=== PATIENT | male | born 1950 | race Caucasian/White ===

== ENCOUNTER 2017-09-17 11:26 | Emergency (ER) | payer BC ==
[~2017-09-17] VITALS: Ht 175.3 cm; Wt 117.0 kg
[~2017-09-17 11:26] MED LIST: COUMADIN7.5 MG PO; LEVOFLOXACIN750 MG PO; LOVENOX150 MG/1 M SC; METFORMIN HCL1000 MG PO; NICOTINE PATCH1 EAC2 TD
[2017-09-17 12:19] LABS: BASOPHIL (%) 0.2 % (0-1); EOSINOPHIL (%) 0.2 % (0-5); HEMATOCRIT 42.8 % (38.0-50.0); HEMOGLOBIN 14.4 G/DL (12.5-16.6); IMMATURE GRANULOCYTE (%) 1.3 % (0.0-0.7); LYMPHOCYTE (%) 9.4 % (15-42); LYMPHOCYTE COUNT 1.4 K/uL (1.0-2.8); MCH 29.3 PG (29.0-34.0); MCHC 33.6 G/DL (30.0-36.0); MCV 87.2 FL (86-99); MONOCYTE (%) 7.7 % (3-12); MONOCYTE COUNT 1.1 K/uL (0-0.8); NEUTROPHIL (%) 81.2 % (45-76); NEUTROPHIL COUNT 11.8 K/uL (1.8-6.4); PLATELET COUNT 214 K/uL (156-360); RBC DIS.WIDTH-CV 15.7 % (11.8-14.6); RBC DIS.WIDTH-SD 50.5 % (39-53); RED BLOOD COUNT 4.91 M/uL (4.00-5.50); WHITE BLOOD COUNT 14.5 K/uL (4.1-10.2)
[2017-09-17 12:29] LABS: INTER. NORMALIZED RATIO 1.9
[2017-09-17 12:31] LABS: CHLORIDE 100 mEq/L (99-109); POTASSIUM 4.2 mEq/L (3.7-5.4); SODIUM 136 mEq/L (136-147)
[2017-09-17 12:33] LABS: GLUCOSE 143 mg/dL (70-99)
[2017-09-17 12:37] LABS: CREATININE 0.9 mg/dL (0.6-1.3); GFR ESTIMATE (CALCULATED) > 59 mL/min/ (58.99-99999); UREA NITROGEN (BUN) 13 mg/dL (9-23)
[2017-09-17] MEDS ORDERED: AUGMENTIN875 MG PO (13:40)
[2017-09-17 14:17] VITALS: BP 102/68
== END 2017-09-17 14:18 | disposition home or self-care (01) ==
LOC: EME 11:26
PROVIDERS: Emergency Medicine
DX: L03.115 Cellulitis of right lower limb (principal); E11.9 Type 2 diabetes mellitus without complications; Z86.718 Personal history of other venous thrombosis and embolism; Z79.01 Long term (current) use of anticoagulants; F17.200 Nicotine dependence, unspecified, uncomplicated; Z88.1 Allergy status to other antibiotic agents
CPT/HCPCS: 80048; 85025; 85610; 93971; 99281; 99284

== ENCOUNTER 2017-09-25 21:41 | Inpatient (IN) | payer BC ==
[~2017-09-25] VITALS: Ht 175.3 cm; Wt 115.9 kg
[~2017-09-25 21:41] MED LIST changes: +AUGMENTIN875 MG PO
[2017-09-25 23:09] LABS: HEMATOCRIT 40.2 % (38.0-50.0); HEMOGLOBIN 13.2 G/DL (12.5-16.6); MCH 28.8 PG (29.0-34.0); MCHC 32.8 G/DL (30.0-36.0); MCV 87.8 FL (86-99); PLATELET COUNT 252 K/uL (156-360); RBC DIS.WIDTH-CV 15.2 % (11.8-14.6); RBC DIS.WIDTH-SD 49.1 % (39-53); RED BLOOD COUNT 4.58 M/uL (4.00-5.50); WHITE BLOOD COUNT 8.3 K/uL (4.1-10.2)
[2017-09-25 23:20] LABS: ALBUMIN 2.8 g/dL (3.2-4.8); PTT 46.2 SEC (25-37)
[2017-09-25 23:21] LABS: CHLORIDE 101 mEq/L (99-109); POTASSIUM 3.5 mEq/L (3.7-5.4); SODIUM 141 mEq/L (136-147)
[2017-09-25 23:23] LABS: GLUCOSE 123 mg/dL (70-99)
[2017-09-25 23:25] LABS: TOTAL BILIRUBIN 0.5 mg/dL (0.0-1.0)
[2017-09-25 23:26] LABS: ALKALINE PHOSPHATASE 83 IU/L (3-129)
[2017-09-25 23:27] LABS: CREATININE 0.8 mg/dL (0.6-1.3); GFR ESTIMATE (CALCULATED) > 59 mL/min/ (58.99-99999); INTER. NORMALIZED RATIO 5.7
[2017-09-25 23:28] LABS: AST (GOT) 39 IU/L (2-34); UREA NITROGEN (BUN) 12 mg/dL (9-23)
[2017-09-25 23:29] LABS: ALT (GPT) 44 IU/L (3-49)
[2017-09-25 23:30] LABS: LIPASE 15 U/L (1.0-51.0)
[2017-09-26] MEDS ORDERED: WARFARIN SODIUM10 MG PO (00:09)
[2017-09-26] MEDS ORDERED: ATORVASTATIN CA40 MG PO (00:10)
[2017-09-26 07:38] LABS: INTER. NORMALIZED RATIO 6.3
[2017-09-26 17:13] VITALS: BP 121/60
[2017-09-26 19:39] VITALS: BP 118/68
[2017-09-26 23:56] VITALS: BP 120/76
[2017-09-27 03:46] VITALS: BP 120/69
[2017-09-27 05:53] LABS: BASOPHIL (%) 0.2 % (0-1); EOSINOPHIL (%) 3.7 % (0-5); EOSINOPHIL COUNT 0.3 K/uL (0-0.3); HEMATOCRIT 36.1 % (38.0-50.0); HEMOGLOBIN 11.5 G/DL (12.5-16.6); IMMATURE GRANULOCYTE (%) 1.1 % (0.0-0.7); LYMPHOCYTE (%) 22.3 % (15-42); LYMPHOCYTE COUNT 1.8 K/uL (1.0-2.8); MCH 28.1 PG (29.0-34.0); MCHC 31.9 G/DL (30.0-36.0); MCV 88.3 FL (86-99); MONOCYTE (%) 5.2 % (3-12); MONOCYTE COUNT 0.4 K/uL (0-0.8); NEUTROPHIL (%) 67.5 % (45-76); NEUTROPHIL COUNT 5.4 K/uL (1.8-6.4); PLATELET COUNT 250 K/uL (156-360); RBC DIS.WIDTH-CV 15.5 % (11.8-14.6); RBC DIS.WIDTH-SD 50.4 % (39-53); RED BLOOD COUNT 4.09 M/uL (4.00-5.50); WHITE BLOOD COUNT 8.1 K/uL (4.1-10.2)
[2017-09-27 06:19] LABS: INTER. NORMALIZED RATIO 3.7
[2017-09-27 06:23] LABS: CHLORIDE 105 MEQ/L (99-109); CREATININE 0.6 MG/DL (0.6-1.3); GFR ESTIMATE (CALCULATED) > 59 mL/min/ (58.99-99999); GLUCOSE 107 mg/dL (70-99); POTASSIUM 3.8 MEQ/L (3.7-5.4); SODIUM 139 MEQ/L (136-147); UREA NITROGEN (BUN) 9 mg/dL (9-23)
[2017-09-27 08:36] VITALS: BP 128/73
[2017-09-27 11:32] VITALS: BP 116/64
[2017-09-27 16:29] VITALS: BP 135/80
[2017-09-27 20:02] VITALS: BP 109/57
[2017-09-27 23:54] VITALS: BP 122/80
[2017-09-28 04:17] VITALS: BP 174/68
[2017-09-28 06:04] LABS: BASOPHIL (%) 0.3 % (0-1); EOSINOPHIL (%) 2.6 % (0-5); EOSINOPHIL COUNT 0.2 K/uL (0-0.3); HEMOGLOBIN 11.7 G/DL (12.5-16.6); IMMATURE GRANULOCYTE (%) 1.4 % (0.0-0.7); LYMPHOCYTE (%) 24.2 % (15-42); LYMPHOCYTE COUNT 1.9 K/uL (1.0-2.8); MCH 28.8 PG (29.0-34.0); MCHC 32.5 G/DL (30.0-36.0); MCV 88.7 FL (86-99); MONOCYTE (%) 5.1 % (3-12); MONOCYTE COUNT 0.4 K/uL (0-0.8); NEUTROPHIL (%) 66.4 % (45-76); NEUTROPHIL COUNT 5.1 K/uL (1.8-6.4); PLATELET COUNT 252 K/uL (156-360); RBC DIS.WIDTH-CV 15.9 % (11.8-14.6); RBC DIS.WIDTH-SD 51.4 % (39-53); RED BLOOD COUNT 4.06 M/uL (4.00-5.50); WHITE BLOOD COUNT 7.6 K/uL (4.1-10.2)
[2017-09-28 06:30] LABS: ALBUMIN 2.7 G/DL (3.2-4.8); ALKALINE PHOSPHATASE 62 IU/L (3-129); ALT (GPT) 40 IU/L (3-49); AST (GOT) 32 IU/L (2-34); C-REACTIVE PROTEIN 16.2 MG/L (0-10); CHLORIDE 105 MEQ/L (99-109); CREATININE 0.6 MG/DL (0.6-1.3); GFR ESTIMATE (CALCULATED) > 59 mL/min/ (58.99-99999); GLUCOSE 121 mg/dL (70-99); POTASSIUM 4.1 MEQ/L (3.7-5.4); SODIUM 139 MEQ/L (136-147); TOTAL BILIRUBIN 0.4 MG/DL (0.0-1.0); TOTAL PROTEIN 6.4 G/DL (6.4-8.3); UREA NITROGEN (BUN) 10 mg/dL (9-23)
[2017-09-28 06:47] LABS: INTER. NORMALIZED RATIO 2.5
[2017-09-28 07:30] VITALS: BP 118/73
[2017-09-28 08:31] LABS: ERTH.SED.RATE 55 MM/HR (0-20)
[2017-09-28 11:25] VITALS: BP 112/68
[2017-09-28 15:35] VITALS: BP 116/71
[2017-09-28 19:41] VITALS: BP 121/67
[2017-09-28 23:46] VITALS: BP 118/75
[2017-09-29 03:41] VITALS: BP 121/73
[2017-09-29 07:20] LABS: INTER. NORMALIZED RATIO 1.7
[2017-09-29 08:13] VITALS: BP 128/76
[2017-09-29 12:13] VITALS: BP 127/76
[2017-09-29 17:02] VITALS: BP 132/78
[2017-09-29 19:40] VITALS: BP 135/77
[2017-09-29 23:44] VITALS: BP 126/65
[2017-09-30 04:48] VITALS: BP 134/76
[2017-09-30 05:42] LABS: INTER. NORMALIZED RATIO 1.8
[2017-09-30 07:42] VITALS: BP 165/85
[2017-09-30 12:00] VITALS: BP 122/73
[2017-09-30] MEDS ORDERED: BACTRIM,SEPT1 TABLET PO (12:35)
[2017-09-30] MEDS ORDERED: COUMADIN7.5 MG PO (12:35)
[2017-09-30] MEDS ORDERED: HYDROCODON-ACE1 EAC7 PO (12:35)
[2017-09-30] MEDS ORDERED: DULERA 100 MCG/13 GM IH (12:35)
[2017-09-30] MEDS ORDERED: AUGMENTIN875 MG PO (12:35)
[2017-09-30] MEDS ORDERED: PROAIR HFA8.5 GM IH (14:55)
== END 2017-09-30 15:37 | disposition home or self-care (01) | DRG 580 ==
LOC: EME 21:41 → 3EAST 09-26 00:44 → EDOF 09-26 00:44 → ENRESERV 09-26 00:52 → 3EAST 09-26 16:15 → ENPENDDIS 09-30 → 3EAST 09-30 15:37
PROVIDERS: Emergency Medicine; Hospitalist; Internal Medicine; Physician Assistant Medical
PROC: 0J9Q0ZZ Drainage of Right Foot Subcutaneous Tissue and Fascia, Open Approach (ICD-10-PCS; principal; 2017-09-26)
DX: L03.115 Cellulitis of right lower limb (principal); L89.512 Pressure ulcer of right ankle, stage 2; L02.415 Cutaneous abscess of right lower limb; J44.1 Chronic obstructive pulmonary disease with (acute) exacerbation; E87.2 Acidosis; E11.622 Type 2 diabetes mellitus with other skin ulcer; F17.210 Nicotine dependence, cigarettes, uncomplicated; E66.01 Morbid (severe) obesity due to excess calories; I10 Essential (primary) hypertension; E78.5 Hyperlipidemia, unspecified; I87.8 Other specified disorders of veins; R05 Cough; E11.621 Type 2 diabetes mellitus with foot ulcer; M25.571 Pain in right ankle and joints of right foot; M79.671 Pain in right foot; R79.1 Abnormal coagulation profile; F17.200 Nicotine dependence, unspecified, uncomplicated; Z86.711 Personal history of pulmonary embolism; Z79.01 Long term (current) use of anticoagulants; Z86.718 Personal history of other venous thrombosis and embolism; Z79.84 Long term (current) use of oral hypoglycemic drugs; Z88.1 Allergy status to other antibiotic agents; Z68.37 Body mass index [BMI] 37.0-37.9, adult; Z79.899 Other long term (current) drug therapy; Z80.9 Family history of malignant neoplasm, unspecified
CPT/HCPCS: 70140; 71250; 73723; 80048; 80053; 80202; 82948; 83605; 83690; 85025; 85027; 85610; 85652; 85730; 86140; 87040; 87070; 87075; 87205; 87502; 87641; 93971; 94640; 94640 76; 94760; 99202; 99281; 99285; J0690; J1170; J2270; J2543; J3370; J7050; J7120